=== PATIENT | female | born 1970 | race Caucasian/White ===

== ENCOUNTER 2017-11-27 19:58 | Inpatient (IN) | payer MEDICAID, OTHER ==
[2017-11-27] MEDS: IBUPROFEN 600 MG TAB PO (23:02)
[2017-11-27] MEDS: ALBUTEROL 0.083% (NEB) 2.5 MG/3 ML AMP NEB (23:04)
[2017-11-27] MEDS: IPRATROPIUM (NEB) 0.5 MG/2.5 ML AMP NEB (23:14)
[2017-11-27] MEDS: DEXAMETHASONE 10 MG/ML 1 ML INJ IM (23:30)
[2017-11-28] MEDS: LEVALBUTEROL (NEB) 1.25 MG/0.5 ML AMP INH (01:11)
[2017-11-28] MEDS: IPRATROPIUM (NEB) 0.5 MG/2.5 ML AMP INH (01:11)
[2017-11-28] MEDS: SOD CHLORIDE 0.9% IV (01:20)
[2017-11-28] MEDS: MAGNESIUM SULFATE 2 GM/50 ML 50 ML IVPB ×2 (01:21→02:23)
[2017-11-28] MEDS: METHYLPRED. NA SUCC 250 MG in DEXTROSE 5% 50 ML IV (01:47)
[2017-11-28 01:51] LABS: ADD MAN DIFF? NO
[2017-11-28 01:53] LABS: WHITE BLOOD COUNT 12.4 10^3/ul (4.8-10.8)
[2017-11-28 01:53] LABS: BASOPHILS % 0.3 % (0.0-2.0); EOSINOPHILS # 1.3 10^3/ul (0.0-0.5); EOSINOPHILS % 10.2 % (0.0-7.0); HEMATOCRIT 41.6 % (37.0-47.0); HEMOGLOBIN 14.4 g/dl (12.0-16.0); LYMPHOCYTES # 1.7 10^3/ul (0.8-2.9); LYMPHOCYTES % 13.5 % (15.0-51.0); MEAN CORPUSCULAR HEMOGLOBIN 32.2 pg (29.0-33.0); MEAN CORPUSCULAR HGB CONC 34.6 g/dl (32.0-37.0); MEAN CORPUSCULAR VOLUME 93.1 fl (82.0-101.0); MEAN PLATELET VOLUME 11.2 fl (7.4-10.4); MONOCYTES % 8.1 % (0.0-11.0); NEUTROPHIL # 8.4 10^3/ul (1.6-7.5); NEUTROPHILS % 67.6 % (39.0-77.0); PLATELET COUNT 251 10^3/UL (140-415); RED BLOOD COUNT 4.47 10^6/ul (4.20-5.40); RED CELL DISTRIBUTION WIDTH 12.6 % (11.5-14.5)
[2017-11-28 02:15] LABS: ANION GAP 15 (8-16); BLOOD UREA NITROGEN 13 mg/dl (7-20); CALCIUM 9.1 mg/dl (8.4-10.2); CARBON DIOXIDE 25 mmol/L (21-31); CHLORIDE 105 mmol/L (97-110); CREATININE 0.67 mg/dl (0.44-1.00); GLUCOSE 135 mg/dl (70-220); POTASSIUM 3.4 mmol/L (3.5-5.1); SODIUM 142 mmol/L (135-144)
[2017-11-28] MEDS: POTASSIUM CHLORIDE (SR) 20 MEQ TAB PO (03:04)
[2017-11-28] MEDS: FLUTICASONE/VILANTEROL 100-25 INH (05:00)
[2017-11-28] MEDS: SOD CHLORIDE 0.9% 500 ML IV (05:20)
[2017-11-28] MEDS: DILTIAZEM 25 MG INJ IV (05:28)
[2017-11-28] MEDS: ONDANSETRON 4 MG INJ IV (05:28)
[2017-11-28] MEDS: IPRATROPIUM (NEB) 0.5 MG/2.5 ML AMP HHN ×2 (05:32→15:29)
[2017-11-28] MEDS: LEVALBUTEROL (NEB) 0.63 MG/3 ML AMP HHN ×2 (05:33→15:29)
[2017-11-28] MEDS: LORAZEPAM 2 MG INJ IV ×2 (06:28→06:40)
[2017-11-28 06:53] LABS: AADO2 Arterial 156.9 mmHg (7.0-24.0); Allen Test ACCEPTAB; Arterial Base Excess -6.3 mmol/L (-3.0-3); Arterial Blood Gas Oxygen Sat 93.4 mmHG (95.0-98.0); Arterial COHb 0.1 % (0.0-3.0); Arterial Fraction of Oxyhgb 93.1 % (93.0-99.0); Arterial HCO3 20.8 mmol/L (22.0-26.0); Arterial MetHb 0.2 % (0.0-1.5); Arterial Total Hemglobin 15.2 g/dl (12.0-18.0); Arterial pCO2 47.2 mmhg (35-45); Blood Gas IEPAP 15/5; MODE MASK - BIPAP; Site Right Radial
[2017-11-28 07:15] LABS: ADD MAN DIFF? NO
[2017-11-28 07:19] LABS: ABNORMAL IP MESSAGE 1; BASOPHILS % 0.2 % (0.0-2.0); HEMATOCRIT 40.1 % (37.0-47.0); HEMOGLOBIN 13.8 g/dl (12.0-16.0); LYMPHOCYTES # 0.2 10^3/ul (0.8-2.9); MEAN CORPUSCULAR HGB CONC 34.4 g/dl (32.0-37.0); MEAN PLATELET VOLUME 10.7 fl (7.4-10.4); MONOCYTES % 0.4 % (0.0-11.0); NEUTROPHIL # 10.9 10^3/ul (1.6-7.5); NEUTROPHILS % 96.8 % (39.0-77.0); PLATELET COUNT 259 10^3/UL (140-415); RED BLOOD COUNT 4.31 10^6/ul (4.20-5.40); RED CELL DISTRIBUTION WIDTH 12.8 % (11.5-14.5)
[2017-11-28 07:19] LABS: WHITE BLOOD COUNT 11.2 10^3/ul (4.8-10.8)
[2017-11-28 07:25] LABS: POSITIVE DIFF @See below
[2017-11-28 07:44] LABS: ALANINE AMINOTRANSFERASE 21 IU/L (13-69); ALBUMIN 4.4 g/dl (3.3-4.9); ALBUMIN/GLOBULIN RATIO 1.22; ALKALINE PHOSPHATASE 53 IU/L (42-121); ANION GAP 14 (8-16); ASPARTATE AMINO TRANSFERASE 25 IU/L (15-46); BILIRUBIN,INDIRECT 0.3 mg/dl (0-1.1); BILIRUBIN,TOTAL 0.3 mg/dl (0.2-1.3); BLOOD UREA NITROGEN 9 mg/dl (7-20); CALCIUM 8.4 mg/dl (8.4-10.2); CARBON DIOXIDE 21 mmol/L (21-31); CHLORIDE 112 mmol/L (97-110); CREATININE 0.46 mg/dl (0.44-1.00); GLUCOSE 226 mg/dl (70-220); MAGNESIUM 2.5 mg/dl (1.7-2.5); PHOSPHORUS 3.1 mg/dl (2.5-4.9); POTASSIUM 4.2 mmol/L (3.5-5.1); SODIUM 143 mmol/L (135-144)
[2017-11-28 08:00] LABS: T4 (THYROXINE) 5.5 ug/dl (5.5-11.0)
[2017-11-28 08:02] LABS: D-DIMER 377.13 ng/ml (<460)
[2017-11-28 08:14] LABS: THYROID STIMULATING HORMONE 0.808 MIU/L (0.465-4.680)
[2017-11-28] MEDS: LEVOFLOXACIN 500MG/D5W (PMX) 100 ML IVPB (08:57)
[2017-11-28] MEDS: METHYLPREDNISOLONE 125 MG INJ IV ×2 (08:57→20:59)
[2017-11-28] MEDS: ALBUTEROL/IPRATROPIUM (NEB) 3 ML AMP HHN ×4 (09:27→20:00)
[2017-11-28 12:50] LABS: AADO2 Arterial 129.5 mmHg (7.0-24.0); Allen Test ACCEPTAB; Arterial Base Excess -2.6 mmol/L (-3.0-3); Arterial Blood Gas Oxygen Sat 97.2 mmHG (95.0-98.0); Arterial COHb 0.1 % (0.0-3.0); Arterial HCO3 23.9 mmol/L (22.0-26.0); Arterial MetHb 0.1 % (0.0-1.5); Arterial Total Hemglobin 14.9 g/dl (12.0-18.0); Arterial pCO2 47.6 mmhg (35-45); Blood Gas PS 10; MODE MASK - BIPAP; Site Right Radial
[2017-11-28] MEDS: morphine 2 MG INJ IV (15:22)
[2017-11-29] MEDS: ALBUTEROL/IPRATROPIUM (NEB) 3 ML AMP HHN ×6 (01:30→19:25)
[2017-11-29] MEDS: LEVOFLOXACIN 500MG/D5W (PMX) 100 ML IVPB (08:19)
[2017-11-29] MEDS: METHYLPREDNISOLONE 125 MG INJ IV (08:20)
[2017-11-29] MEDS: FLUTICASONE/VILANTEROL 100-25 INH (08:20)
[2017-11-29] MEDS: ACETAMINOPHEN 325 MG TAB PO (11:52)
[2017-11-29] MEDS: BUDESONIDE (NEB) 0.5MG/2ML AMP HHN ×2 (19:25→20:00)
[2017-11-29] MEDS: MONTELUKAST 10 MG TAB PO (21:53)
[2017-11-29] MEDS: METHYLPREDNISOLONE 40 MG INJ IV (21:53)
[2017-11-30] MEDS: ALBUTEROL/IPRATROPIUM (NEB) 3 ML AMP HHN ×2 (01:00→08:41)
[2017-11-30 07:40] LABS: ADD MAN DIFF? NO
[2017-11-30 07:41] LABS: BASOPHILS % 0.1 % (0.0-2.0); HEMATOCRIT 39.9 % (37.0-47.0); HEMOGLOBIN 13.7 g/dl (12.0-16.0); LYMPHOCYTES # 1.1 10^3/ul (0.8-2.9); LYMPHOCYTES % 5.4 % (15.0-51.0); MEAN CORPUSCULAR HEMOGLOBIN 32.4 pg (29.0-33.0); MEAN CORPUSCULAR HGB CONC 34.3 g/dl (32.0-37.0); MEAN CORPUSCULAR VOLUME 94.3 fl (82.0-101.0); MEAN PLATELET VOLUME 10.3 fl (7.4-10.4); MONOCYTE # 0.7 10^3/ul (0.3-0.9); MONOCYTES % 3.4 % (0.0-11.0); NEUTROPHIL # 18.4 10^3/ul (1.6-7.5); NEUTROPHILS % 90.6 % (39.0-77.0); PLATELET COUNT 302 10^3/UL (140-415); RED BLOOD COUNT 4.23 10^6/ul (4.20-5.40)
[2017-11-30 07:41] LABS: WHITE BLOOD COUNT 20.3 10^3/ul (4.8-10.8)
[2017-11-30] MEDS: LEVOFLOXACIN 500MG/D5W (PMX) 100 ML IVPB (08:11)
[2017-11-30] MEDS: METHYLPREDNISOLONE 40 MG INJ IV (08:12)
[2017-11-30 08:19] LABS: ANION GAP 10 (8-16); BLOOD UREA NITROGEN 19 mg/dl (7-20); CALCIUM 9.1 mg/dl (8.4-10.2); CARBON DIOXIDE 28 mmol/L (21-31); CHLORIDE 106 mmol/L (97-110); CREATININE 0.55 mg/dl (0.44-1.00); GLUCOSE 129 mg/dl (70-220); MAGNESIUM 2.1 mg/dl (1.7-2.5); PHOSPHORUS 3.9 mg/dl (2.5-4.9); POTASSIUM 4.4 mmol/L (3.5-5.1); SODIUM 140 mmol/L (135-144)
[2017-11-30] MEDS: BUDESONIDE (NEB) 0.5MG/2ML AMP HHN (08:41)
[2017-11-30] MEDS: TIOTROPIUM 18 MCG CAPSULE INHA DEV INH (11:03)
[2017-11-30] MEDS: FLUTICASONE/VILANTEROL 100-25 INH (11:03)
[2017-11-30] MEDS: MONTELUKAST 10 MG TAB PO (20:54)
[2017-12-01] MEDS: LEVOFLOXACIN 500 MG TAB PO (06:05)
[2017-12-01] MEDS: FLUTICASONE/VILANTEROL 100-25 INH (09:49)
[2017-12-01] MEDS: predniSONE 20 MG TAB PO (09:49)
[2017-12-01] MEDS: TIOTROPIUM 18 MCG CAPSULE INHA DEV INH (09:49)
[2017-12-01 10:02] LABS: ADD MAN DIFF? NO
[2017-12-01 10:08] LABS: BASOPHILS % 0.4 % (0.0-2.0); EOSINOPHILS # 0.2 10^3/ul (0.0-0.5); EOSINOPHILS % 1.4 % (0.0-7.0); HEMOGLOBIN 14.5 g/dl (12.0-16.0); LYMPHOCYTES % 28.7 % (15.0-51.0); MEAN CORPUSCULAR HEMOGLOBIN 32.2 pg (29.0-33.0); MEAN CORPUSCULAR HGB CONC 34.5 g/dl (32.0-37.0); MEAN CORPUSCULAR VOLUME 93.3 fl (82.0-101.0); MEAN PLATELET VOLUME 10.1 fl (7.4-10.4); MONOCYTES % 9.4 % (0.0-11.0); NEUTROPHIL # 6.3 10^3/ul (1.6-7.5); NEUTROPHILS % 59.2 % (39.0-77.0); PLATELET COUNT 290 10^3/UL (140-415); RED CELL DISTRIBUTION WIDTH 12.7 % (11.5-14.5)
[2017-12-01 10:08] LABS: WHITE BLOOD COUNT 10.6 10^3/ul (4.8-10.8)
[2017-12-01 10:34] LABS: ANION GAP 12 (8-16); BLOOD UREA NITROGEN 20 mg/dl (7-20); CARBON DIOXIDE 25 mmol/L (21-31); CHLORIDE 105 mmol/L (97-110); GLUCOSE 97 mg/dl (70-220); MAGNESIUM 1.9 mg/dl (1.7-2.5); PHOSPHORUS 3.6 mg/dl (2.5-4.9); POTASSIUM 3.7 mmol/L (3.5-5.1); SODIUM 138 mmol/L (135-144)
[2017-12-01] MEDS: ACETAMINOPHEN 325 MG TAB PO (11:15)
[2017-12-01] MEDS: ALBUTEROL/IPRATROPIUM (NEB) 3 ML AMP HHN ×2 (14:11→20:40)
[2017-12-01] MEDS: MONTELUKAST 10 MG TAB PO (21:19)
[2017-12-02] MEDS: ALBUTEROL/IPRATROPIUM (NEB) 3 ML AMP HHN ×3 (02:06→13:33)
[2017-12-02] MEDS: LEVOFLOXACIN 500 MG TAB PO (05:58)
[2017-12-02 07:58] LABS: ADD MAN DIFF? NO
[2017-12-02 08:03] LABS: BASOPHIL # 0.1 10^3/ul (0.0-0.1); BASOPHILS % 0.4 % (0.0-2.0); EOSINOPHILS # 0.2 10^3/ul (0.0-0.5); EOSINOPHILS % 1.7 % (0.0-7.0); HEMATOCRIT 45.8 % (37.0-47.0); HEMOGLOBIN 15.8 g/dl (12.0-16.0); LYMPHOCYTES # 4.1 10^3/ul (0.8-2.9); LYMPHOCYTES % 29.6 % (15.0-51.0); MEAN CORPUSCULAR HEMOGLOBIN 32.4 pg (29.0-33.0); MEAN CORPUSCULAR HGB CONC 34.5 g/dl (32.0-37.0); MONOCYTE # 1.1 10^3/ul (0.3-0.9); NEUTROPHILS % 58.5 % (39.0-77.0); PLATELET COUNT 359 10^3/UL (140-415); RED BLOOD COUNT 4.87 10^6/ul (4.20-5.40); RED CELL DISTRIBUTION WIDTH 12.4 % (11.5-14.5)
[2017-12-02 08:03] LABS: WHITE BLOOD COUNT 13.7 10^3/ul (4.8-10.8)
[2017-12-02] MEDS: FLUTICASONE/VILANTEROL 100-25 INH ×2 (08:05→12:00)
[2017-12-02] MEDS: predniSONE 20 MG TAB PO (08:05)
[2017-12-02] MEDS: TIOTROPIUM 18 MCG CAPSULE INHA DEV INH ×2 (08:05→12:00)
[2017-12-02 08:45] LABS: ANION GAP 13 (8-16); BLOOD UREA NITROGEN 18 mg/dl (7-20); CALCIUM 9.6 mg/dl (8.4-10.2); CARBON DIOXIDE 29 mmol/L (21-31); CHLORIDE 102 mmol/L (97-110); CREATININE 0.62 mg/dl (0.44-1.00); GLUCOSE 89 mg/dl (70-220); PHOSPHORUS 5.1 mg/dl (2.5-4.9); POTASSIUM 3.7 mmol/L (3.5-5.1); SODIUM 140 mmol/L (135-144)
== END 2017-12-02 14:29 | disposition home or self-care (01) | DRG 202 ==
LOC: MS4 11-29 19:41 → FTE 19:58 → TEL 11-28 02:50 → ICU 11-28 13:17
PROC: 5A09357 Assistance with Respiratory Ventilation, Less than 24 Consecutive Hours, Continuous Positive Airway Pressure (ICD-10-PCS; principal; 2017-11-28)
DX: J45.901 Unspecified asthma with (acute) exacerbation (principal); J96.01 Acute respiratory failure with hypoxia
CPT/HCPCS: 36600; 71046; 80048; 80053; 82803; 82962; 83735; 84100; 84436; 84443; 85025; 85378; 87400; 87880; 93005; 94640; 94644; 94660; 94664; 96372; 96374; 96375; 99291-25

== ENCOUNTER 2018-08-02 19:52 | Emergency (ER) | payer MEDICAID ==
[2018-08-03] MEDS: DEXAMETHASONE 10 MG/ML 1 ML INJ IM (00:17)
[2018-08-03] MEDS: ALBUTEROL 0.083% (NEB) 2.5 MG/3 ML AMP NEB (00:24)
== END 2018-08-03 02:02 | disposition home or self-care (01) ==
LOC: FTE 19:52
DX: J45.901 Unspecified asthma with (acute) exacerbation (principal)
CPT/HCPCS: 94664; 96372; 99284-25